=== PATIENT | male | born 1940 | race Caucasian/White ===

== ENCOUNTER 2017-07-21 13:55 | Emergency (ER) | payer OTHER ==
[~2017-07-21] VITALS: Ht 182.9 cm; Wt 72.2 kg
[~2017-07-21 13:55] MED LIST: ATOR80TA41 PO; CHOL1CAP6 PO; LISI-360 PO; OMEP20TA39 PO; PLAV75TA PO; POTA99TA12 PO; VITA250T5 PO
[2017-07-21 14:13] VITALS: BP 181/77; PULSE 102; RESP 16; TEMP 98.1; O2SAT 95
[2017-07-21] MEDS ORDERED: OMEP20TA PO (14:24)
[2017-07-21] MEDS ORDERED: ASPI81CH CHEW (14:24)
[2017-07-21] MEDS ORDERED: LISI10TA3 PO (14:24)
[2017-07-21] MEDS ORDERED: LIPI80TA PO (14:24)
--- NOTE | 2017-07-21 14:26 | PD ---
HPI Chief Complaint: Pressure in head Time Seen by Provider: 14:08 Travel History International Travel<30 days: No Contact w/Intl Traveler<30days: No History of Present Illness HPI 77yo M with PMH of HTN, GERD presents to the ED with c/o pressure in his headache for about 3 days. States it is not pain and it is generalized in location. Pt didnt think it was so bad but woke up his morning with blood in the whites of his right eye this morning. Denies any fever, neck pain, visual changes, eye pain, chest pain, sob, n/v, abdominal pain, focal weakness or numbness. PFSH Past Medical History Cancer: Yes (SKIN CA REMOVED FROM NECK) Cardiovascular Problems: No High Cholesterol: Yes Diminished Hearing: No Endocrine: No Genitourinary: No Hepatitis: No Hiatal Hernia: No Hypertension: Yes Immune Disorder: No Musculoskeletal: No Neurologic: No Psychiatric: No Reproductive: No Respiratory: No Thyroid Disease: No Past Surgical History Abdominal Surgery: No AICD: No Cardiac Surgery: No Ear Surgery: No Endocrine Surgery: No Eye Surgery: No Genitourinary Surgery: No Gynecologic Surgery: No Joint Replacement: No Oral Surgery: No Pacemaker: No Thoracic Surgery: No Social History Alcohol Use: Yes (TWO BEERS DAILY) Tobacco Use: Yes (5 ELECTRIC CIGARETTES) Substance Use: No Allergies-Medications (Allergen,Severity, Reaction): Coded Allergies: No Known Allergies (Unverified , 06/06/13) Reported Meds & Prescriptions Reported Meds & Active Scripts Active Reported Aspirin 81 Mg Chew 81 Mg CHEW DAILY Omeprazole 20 Mg Tab 20 Mg PO DAILY Lipitor (Atorvastatin Calcium) 80 Mg Tab 80 Mg PO HS Lisinopril 10 Mg Tab 10 Mg PO DAILY Review of Systems Except as stated in HPI: all other systems reviewed are Neg Physical Exam Narrative GENERAL: 77yo M not in distress. SKIN: Focused skin assessment warm/dry. HEAD: Atraumatic. Normocephalic. EYES: Pupils equal and round at 3mm bilaterally. Right eye: +Subconjunctival hemorrhage medial sclera. EOMI. ENT: No nasal bleeding or discharge. Mucous membranes pink and moist. NECK: Trachea midline. No JVD. CARDIOVASCULAR: Regular rate and rhythm. No murmur appreciated. RESPIRATORY: No accessory muscle use. Clear to auscultation. Breath sounds equal bilaterally. GASTROINTESTINAL: Abdomen soft, non-tender, nondistended. No rebound tenderness or guarding. MUSCULOSKELETAL: No obvious deformities. No clubbing. No cyanosis. No edema. NEUROLOGICAL: Awake and alert. No obvious cranial nerve deficits. Motor grossly within normal limits. Normal speech. PSYCHIATRIC: Appropriate mood and affect; insight and judgment normal. Data Data Last Documented VS Vital Signs Date Time Temp Pulse Resp B/P (MAP) Pulse Ox O2 Delivery O2 Flow Rate FiO2 07/21/17 15:09 85 160/77 (104) 95 07/21/17 14:13 98[address] Brain W/O Iv Contrast(Rout) (07/21/17 ) Complete Blood Count With Diff (07/21/17 14:22) Basic Metabolic Panel (Bmp) (07/21/17 14:22) Prothrombin Time / Inr (Pt) (07/21/17 14:22) Act Partial Throm Time (Ptt) (07/21/17 14:22) Labs Laboratory Tests Test 07/21/17 14:10 White Blood Count 6.5 TH/MM3 Red Blood Count 4.20 MIL/MM3 Hemoglobin 12.8 GM/DL Hematocrit 37.8 % Mean Corpuscular Volume 89.9 FL Mean Corpuscular Hemoglobin 30.4 PG Mean Corpuscular Hemoglobin Concent 33.8 % Red Cell Distribution Width 13.1 % Platelet Count 324 TH/MM3 Mean Platelet Volume 7.4 FL Neutrophils (%) (Auto) 67.7 % Lymphocytes (%) (Auto) 20.4 % Monocytes (%) (Auto) 9.0 % Eosinophils (%) (Auto) 2.6 % Basophils (%) (Auto) 0.3 % Neutrophils # (Auto) 4.4 TH/MM3 Lymphocytes # (Auto) 1.3 TH/MM3 Monocytes # (Auto) 0.6 TH/MM3 Eosinophils # (Auto) 0.2 TH/MM3 Basophils # (Auto) 0.0 TH/MM3 CBC Comment DIFF FINAL Differential Comment Prothrombin Time 10.6 SEC Prothromb Time International Ratio 1.0 RATIO Activated Partial Thromboplast Time 29.2 SEC Blood Urea Nitrogen 20 MG/DL Creatinine 1.30 MG/DL Random Glucose 90 MG/DL Calcium Level 8.5 MG/DL Sodium Level 136 MEQ/L Potassium Level 3.5 MEQ/L Chloride Level 101 MEQ/L Carbon Dioxide Level 26.8 MEQ/L Anion Gap 8 MEQ/L Estimat Glomerular Filtration Rate 53 ML/MIN MDM Medical Decision Making Medical Screen Exam Complete: Yes Emergency Medical Condition: Yes Differential Diagnosis Sinus headache vs. migraine headache Narrative Course 77yo M well appearing here with complaint of swelling in his head. Pt with subconjunctival hemorrhage right eye. States that he has no headache, no eye pain, no visual changes, no weakness or numbness. Labs reviewed, no leukocytosis. BMP unremarkable except mildly elevated BUN. CT brain showed slight atrophic and small vessel ischemic changes without any evidence for acute hemorrhage or mass effect. Pt reevaluated at bedside and still no pain. Just feels that his head is congested. Return precautions given. Diagnosis Primary Impression: Subconjunctival hemorrhage of right eye Patient Instructions: General Instructions Departure Forms: Tests/Procedures Additional Instructions: Please follow up with your primary care physician in 3-7 days. Return to the ED if symptoms worsen. Please follow up with eye doctor if your subconjunctival hemorrhage does not improve. Med/Other Pt SpecificInfo: No Change to Meds Disposition: 01 DISCHARGE HOME Condition: Stable Chiqui Sanvaishali CHAPMAN Jul 21, 2017 14:26
[2017-07-21 14:43] LABS: AUTOMATED NEUTROPHIL # 4.4 TH/MM3 (1.8-7.7); BASOPHIL % 0.3 % (0.0-2.0); EOSINOPHIL # 0.2 TH/MM3 (0-0.4); EOSINOPHIL % 2.6 % (0.0-4.0); HEMATOCRIT 37.8 % (39.0-51.0); HEMO FLAGS DIFF FINAL; LYMPH % 20.4 % (9.0-44.0); LYMPHOCYTE # 1.3 TH/MM3 (1.0-4.8); MEAN CELL VOLUME 89.9 FL (80.0-100.0); MEAN CORPUSCULAR HEMOGLOBIN 30.4 PG (27.0-34.0); MEAN CORPUSCULAR HGB CONC 33.8 % (32.0-36.0); NEUT % 67.7 % (16.0-70.0); PLATELET COUNT 324 TH/MM3 (150-450); RED CELL DISTRIBUTION WIDTH 13.1 % (11.6-17.2); WHITE BLOOD COUNT 6.5 TH/MM3 (4.0-11.0)
[2017-07-21 14:57] LABS: POTASSIUM 3.5 MEQ/L (3.5-5.1)
[2017-07-21 14:59] LABS: BICARBONATE 26.8 MEQ/L (21.0-32.0)
--- NOTE | 2017-07-21 15:01 | RADRPT ---
EXAM DATE/TIME: 07/21/2017 14:42 [facility] COMPARISON: No previous studies available for comparison. INDICATIONS : Head pressure for a few days. Woke up this morning with busted blood vessels in right eye. RADIATION DOSE: 63.29 CTDIvol (mGy) MEDICAL HISTORY : Hypertension. SURGICAL HISTORY : None. ENCOUNTER: Initial ACUITY: 4 - 6 days PAIN SCALE: 2/10 LOCATION: cranial TECHNIQUE: Multiple contiguous axial images were obtained of the head. Using automated exposure control and adj ustment of the mA and/or kV according to patient size, radiation dose was kept as low as reasonably a chievable to obtain optimal diagnostic quality images. DICOM format image data is available electro nically for review and comparison. FINDINGS: There is no evidence for intracranial hemorrhage, mass effect, mass lesions, or edema. The visualize d bony structures appear intact. Slight degree of brain atrophy is seen. Slight periventricular whit e matter changes are seen nonspecific mostly consistent with chronic small vessel ischemic changes. There are no signs of acute infarction for technique. 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 CONCLUSION: Slight atrophic and small vessel ischemic changes without any evidence for acute hemorrhage or mass effect. Santiago Scherer MD on July 21, 2017 at 14:57 Board Certified Radiologist. This report was verified electronically.
[2017-07-21 15:02] LABS: APTT (PATIENT) 29.2 SEC (24.3-30.1); PROTHROMBIN TIME - PATIENT 10.6 SEC (9.8-11.6)
[2017-07-21 15:09] VITALS: BP 160/77; PULSE 85; O2SAT 95
== END 2017-07-21 16:23 | disposition home or self-care (01) ==
LOC: PHED 13:55
DX: H11.31 Conjunctival hemorrhage, right eye (principal); E78.00 Pure hypercholesterolemia, unspecified; I10 Essential (primary) hypertension; F17.200 Nicotine dependence, unspecified, uncomplicated
CPT/HCPCS: 70450; 80048; 85025; 85610; 85730